=== PATIENT | female | born 1985 | race Two or more races ===

== ENCOUNTER 2022-07-23 13:21 | Inpatient (IN) | payer BC, OTHER ==
[~2022-07-23] VITALS: Ht 154.9 cm; Wt 86.0 kg
[2022-07-23] MEDS: cloNIDine HCL 0.1 MG TAB PO ONE ×2 (14:10→14:15)
[2022-07-23] MEDS ORDERED: SODIUM CHLORIDE 0.9% 1,000 ML IV ONE (14:45)
[2022-07-23 14:46] LABS: Basophils # (auto) 0.1 10 ^3/uL (0-0.2); Basophils % (auto) 0.7 % (0.0-2.0); Eosinophils # (auto) 0.1 10 ^3/uL (0-0.8); Hemoglobin 13.8 g/dL (12.2-16.2); Lymphocytes # (auto) 1.5 10 ^3/uL (0.4-5.4); Lymphocytes % (auto) 15.1 % (10.0-50.0); Mean Corpuscular Hemoglobin 30.4 pg (28.0-32.0); Mean Corpuscular Hgb Conc. 33.6 g/dL (32.0-36.0); Mean Corpuscular Volume 90.3 fL (80.0-100.0); Monocytes # (auto) 0.9 10 ^3/uL (0-1.3); Neutrophils # (auto) 7.4 10 ^3/uL (1.6-8.6); Neutrophils % (auto) 74.2 % (37.0-80.0); Nucleated Red Blood Cells % 0.2 %; Red Blood Cells 4.54 10^6/uL (4.0-5.20); Red Cell Distribution Width 13.7 % (11.8-14.3)
[2022-07-23 15:06] LABS: Albumin 3.1 g/dL (3.4-5.0); Calcium 9.2 mg/dL (8.5-10.1); Potassium 3.8 mmol/L (3.5-5.1)
[2022-07-23 15:08] LABS: Bilirubin, Total 0.4 mg/dL (0.2-1.0); Total Protein 7.3 g/dL (6.4-8.2)
[2022-07-23] MEDS ORDERED: MAGNESIUM SULFATE 1GM/100ML 100 ML IV ONE (15:16)
[2022-07-23] MEDS: MAGNESIUM SULFATE 1GM/100ML 100 ML IV SCH ×4 (15:32→18:53)
[2022-07-23 17:22] LABS: Urine Bacteria FEW /hpf (None Seen); Urine Blood Negative /uL (Negative); Urine Mucus FEW (None Seen); Urine Specific Gravity 1.011 (1.001-1.035); Urine WBC 3 /hpf (0 - 5)
[2022-07-23 18:06] LABS: Alcohol, Urine < 3.0 mg/dL (0-10); Amphetamine Screen, Urine NEGATIVE (NEGATIVE); Barbiturate Scree,Urine NEGATIVE (NEGATIVE); Benzodiazephine Screen, Urine NEGATIVE (NEGATIVE); Cannabinoid Screen, Urine NEGATIVE (NEGATIVE); Cocaine Screen, Urine NEGATIVE (NEGATIVE); Opiate Scree,Urine NEGATIVE (NEGATIVE); Phencyclidine Screen, Urine NEGATIVE (NEGATIVE)
[2022-07-24] VITALS (13 sets, daily range): BP systolic 121–156; BP diastolic 68–88
[2022-07-24] MEDS ORDERED: MORPHINE SULFATE INJ 2 MG/ml SYRG IV PRN (03:00)
[2022-07-24] MEDS ORDERED: NITROGLYCERIN 0.4 MG SL TAB SL PRN (03:00)
[2022-07-24] MEDS: LABETALOL HCL 200 MG TAB PO SCH ×2 (10:11→22:34)
[2022-07-24] MEDS: NIFEdipine ER 30 MG TAB PO SCH (10:27)
[2022-07-25] VITALS (33 sets, daily range): BP systolic 116–161; BP diastolic 65–93
[2022-07-25 06:33] LABS: Basophils # (auto) 0.1 10 ^3/uL (0-0.2); Basophils % (auto) 0.7 % (0.0-2.0); Eosinophils # (auto) 0.2 10 ^3/uL (0-0.8); Eosinophils % (auto) 2.1 % (0.0-7.0); Hematocrit 40.7 % (36.0-46.0); Hemoglobin 13.6 g/dL (12.2-16.2); Lymphocytes # (auto) 2.2 10 ^3/uL (0.4-5.4); Lymphocytes % (auto) 26.6 % (10.0-50.0); Mean Corpuscular Hemoglobin 30.8 pg (28.0-32.0); Mean Corpuscular Hgb Conc. 33.4 g/dL (32.0-36.0); Mean Corpuscular Volume 92.3 fL (80.0-100.0); Monocytes # (auto) 0.9 10 ^3/uL (0-1.3); Monocytes % (auto) 11.1 % (0.0-12.0); Neutrophils % (auto) 59.5 % (37.0-80.0); Nucleated Red Blood Cells % 0.1 %; Red Blood Cells 4.41 10^6/uL (4.0-5.20); White Blood Cell 8.4 10^3/uL (4.4-10.8)
[2022-07-25] MEDS: hydrALAZINE HCL 20 MG/ML VL IV PRN (08:19)
[2022-07-25 08:40] LABS: Potassium 4.9 mmol/L (3.5-5.1)
[2022-07-25 08:44] LABS: BUN/Creatinine Ratio 17.7; Calcium 8.2 mg/dL (8.5-10.1)
[2022-07-25] MEDS: LABETALOL HCL 200 MG TAB PO SCH ×2 (09:49→21:55)
[2022-07-25] MEDS: NIFEdipine ER 30 MG TAB PO SCH (09:50)
[2022-07-26 05:00] VITALS: BP 139/81
[2022-07-26 07:15] LABS: Protein, Urine 16.8 mg/dL (0.0-11.9)
[2022-07-26 08:44] VITALS: BP 158/88
[2022-07-26] MEDS: LABETALOL HCL 200 MG TAB PO SCH ×2 (09:36→22:25)
[2022-07-26] MEDS: NIFEdipine ER 30 MG TAB PO SCH (09:36)
[2022-07-26 12:52] VITALS: BP 142/86
[2022-07-26 16:20] VITALS: BP 168/90
[2022-07-26] MEDS: hydrALAZINE HCL 20 MG/ML VL IV PRN (17:04)
[2022-07-26 22:57] VITALS: BP 144/94
[2022-07-27 05:00] VITALS: BP 149/86
[2022-07-27 09:32] VITALS: BP 147/83
[2022-07-27] MEDS: NIFEdipine ER 30 MG TAB PO SCH (10:13)
[2022-07-27] MEDS: LABETALOL HCL 200 MG TAB PO SCH (10:17)
[2022-07-27] MEDS ORDERED: LABE200T6 PO (12:21)
[2022-07-27] MEDS ORDERED: NIFE1TAB31 PO (12:21)
[2022-07-27 12:42] VITALS: BP 147/83
[2022-07-27 12:57] VITALS: BP 148/89
== END 2022-07-27 19:40 | disposition home or self-care (01) | DRG 832 ==
LOC: ER 13:21 → TELE 07-24 02:54 → ICU WEST 07-24 18:07 → TELE-WESTW 07-25 17:48
PROVIDERS: ADMIT Nurse Practitioner; ATTEND Internal Medicine
PROC: 05HC33Z Insertion of Infusion Device into Left Basilic Vein, Percutaneous Approach (ICD-10-PCS; principal; 2022-07-23)
PROC: B54NZZA Ultrasonography of Left Upper Extremity Veins, Guidance (ICD-10-PCS; 2022-07-23)
DX: O16.2 Unspecified maternal hypertension, second trimester (principal); E44.1 Mild protein-calorie malnutrition; I16.0 Hypertensive urgency; O14.92 Unspecified pre-eclampsia, second trimester; O25.12 Malnutrition in pregnancy, second trimester; Z20.822 Contact with and (suspected) exposure to COVID-19; Z3A.20 20 weeks gestation of pregnancy; Z68.35 Body mass index [BMI] 35.0-35.9, adult; Z82.49 Family history of ischemic heart disease and other diseases of the circulatory system; Z91.013 Allergy to seafood
CPT/HCPCS: 36415; 76775; 80048; 80053; 80307; 81001; 82570; 83735; 84156; 84443; 84484; 84702; 85025; 87081; 93005; 96361; 96365; 99291; G0378